=== PATIENT | male | born 1945 | race Caucasian/White ===

== ENCOUNTER 2017-05-10 11:57 | Outpatient (CLI) | payer BC ==
--- NOTE | 2017-05-10 13:44 | CT ---
CT BRAIN WITHOUT CONTRAST: HISTORY: Contusion. Injury. COMPARISON: None. FINDINGS: No acute hemorrhage. No infarct. No midline shift or mass effect. Calvarium is intact. Paranasal sinuses and mastoids are clear. There is a left periorbital soft tissue contusion. IMPRESSION: Left periorbital soft tissue contusion without acute traumatic intracranial sequelae. POS: [facility]
== END 2017-05-10 11:58 | disposition home or self-care (01) ==
LOC: CT 11:57
PROVIDERS: ATTEND Family Medicine
DX: S00.83XA Contusion of other part of head, initial encounter (principal); W19.XXXA Unspecified fall, initial encounter
CPT/HCPCS: 70450

== ENCOUNTER 2018-03-04 10:03 | Outpatient (CLI) | payer BC ==
[~2018-03-04 10:03] MED LIST: Iopamidol 370 76% 100 ML VIAL ONE
--- NOTE | 2018-03-04 12:39 | RAD ---
CHEST TWO VIEWS: History: Kidney cancer. FINDINGS: Cardiac silhouette and pulmonary vasculature are unremarkable. Mediastinum is midline. No confluent a irspace consolidation, pneumothorax, or pleural fluid. Ossification of the anterior longitudinal liga ment of the thoracic spine on the lateral view is consistent with diffuse idiopathic skeletal hyperos tosis. IMPRESSION: No active cardiopulmonary abnormalities are demonstrated. POS: [facility]
--- NOTE | 2018-03-04 15:28 | CT ---
ABDOMEN CT WITH CONTRAST: History: Renal cell cancer. Weight loss. History of right nephrectomy. Comparison: 11-14-13 FINDINGS: Lung bases are clear. Normal heart size. No pericardial effusion. The descending thoracic aorta and a bdominal aorta has a normal caliber. Symmetric attenuation of the cleidomastoid muscles. Portal vein is patent. Gallbladder is unremarkable. Pancreas, adrenal glands, and spleen are unremarkable. Right nephrectomy changes are noted. Left kidney is unremarkable. Visualized alimentary canal does not demonstrate any obstruction. Minimal stranding in the abdominal mesentery with nonspecific lymph nodes in the mesentery. There is a peripherally enhancing lesion in the posterior segment of the right hepatic lobe which was not present on the previous examination. A large metastatic lesion measuring 8.6 x 9.0 cm is suspect ed. There are no lytic or blastic lesions in the osseous structures. IMPRESSION: 1. Essentially hypodense, peripherally enhancing lesion involving the right hepatic lobe (posterior s egment). Given the patient's history of right renal cancer, metastatic lesion to the liver is suspect ed. Results of study discussed with Dr. David 03-04-18 at 3:15 p.m. POS: [facility]
== END 2018-03-04 10:04 | disposition home or self-care (01) ==
LOC: RAD 10:03
PROVIDERS: ATTEND Family Medicine
DX: C64.9 Malignant neoplasm of unspecified kidney, except renal pelvis (principal); K76.9 Liver disease, unspecified
CPT/HCPCS: 71046; 74160; 82565

== ENCOUNTER 2018-03-08 10:24 | Outpatient (CLI) | payer BC ==
--- NOTE | 2018-03-08 13:03 | CT ---
CHEST CT WITH CONTRAST: HISTORY: Malignant adenoma of the chest. Assess for cancer. COMPARISON: None. CORRELATION: Abdomen CT from 03/04/2018. TECHNIQUE: A post contrast chest CT is performed in the axial plane. Coronal reformatted images are submitted f or interpretation. FINDINGS: There is no mediastinal mass, lymphadenopathy, or hematoma. Heart size is within normal limits. No pericardial effusion. The central pulmonary arteries are adequately opacified with contrast. No carolee ling defect. The thoracic aorta and upper abdominal aorta have a normal caliber. No periaortic fat stranding. A peripherally enhancing, hypodense lesion in the right hepatic lobe is again demonstrated and is wor risome for a metastatic focus until proven otherwise. The trachea and central bronchi are patent. Dependent atelectatic changes. A 3 mm nodule in the lef t lower lobe. Subpleural nodule in the right lower lobe, measuring 3 mm. No suspicious or spiculate d masses in the lung parenchyma. There is no pneumothorax. No osseous abnormalities. IMPRESSION: 1. A 3 mm nodule in the left and right lower lobes, as described above. The nodules are of doubtful significance. No malignancy is appreciated in the chest. 2. Posterior right hepatic lobe lesion is again identified and is favored to be a neoplastic process until proven otherwise. POS: [facility]
== END 2018-03-08 10:25 | disposition home or self-care (01) ==
LOC: SCSCT 10:24
PROVIDERS: ATTEND Internal Medicine Hematology & Oncology
DX: R16.0 Hepatomegaly, not elsewhere classified (principal); I10 Essential (primary) hypertension; K76.9 Liver disease, unspecified; R91.8 Other nonspecific abnormal finding of lung field; Z85.528 Personal history of other malignant neoplasm of kidney
CPT/HCPCS: 71260

== ENCOUNTER 2018-03-21 08:18 | Day surgery (SDC) | payer BC ==
[2018-03-20 14:21] VITALS: BMI 26.3
[2018-03-21 08:45] LABS: INR-International Normal Ratio 1.2; PTT 36.7 SEC (22.9-36.1); Prothrombin Time 15.3 SEC (12.0-14.7)
[2018-03-21 08:46] LABS: #Eosinphils 0.1 thou/uL (0.0-0.7); #Lymphocytes 1.1 thou/uL (1.20-3.40); #Monocytes 0.9 thou/uL (0.11-0.59); #Neutrophils 8.2 thou/uL (1.40-6.50); %Basophils 0.1 % (0.0-1.0); %Eosinophils 1.2 % (0.0-10.0); %Lymphocytes 11.1 % (21.0-51.0); %Monocytes 8.6 % (0.0-10.0); %Neutrophils 79.1 % (42.0-75.0); Hemoglobin 11.2 g/dL (14.0-18.0); Mean Corpuscular HGB CONC 29.9 g/dL (32.0-36.0); Mean Corpuscular Hemoglobin 24.1 pg (27.0-31.0); Mean Corpuscular Volume 80.5 fL (78.0-98.0); Mean Platelet Volume 6.7 fL (7.4-10.4); Platelet Count 545 thou/uL (130-400); Red Blood Cell (RBC) Count 4.66 mill/uL (4.70-6.10); White Blood Cell (WBC) Count 10.3 thou/uL (4.8-10.8)
[2018-03-21 08:57] LABS: MDiff Complete? YES; Ovalocytes SLIGHT = 2-5 cells (100X) (0-1/hpf); PLT Morphology Comment Appears Increased; Polychromasia SLIGHT = 2-3 cells (100X) (0-2/hpf)
--- NOTE | 2018-03-21 13:47 | CT ---
CT GUIDED PERCUTANEOUS BIOPSY OF A RIGHT HEPATIC LOBE MASS: 03/21/2018 HISTORY: Patient with a history of renal cell carcinoma, post right nephrectomy. The patient now has a large necrotic mass seen in the right hepatic lobe. Biopsy was requested. TECHNIQUE: The procedure, including risks and complications, was explained to the patient, and informed consent was obtained. The patient was placed on the CT scan table, in a right anterior oblique supine positi on. A limited noncontrast CT scan was obtained through the right hepatic lobe, with grid localizer i n place. An area was marked and then meticulously prepped and draped in the usual sterile fashion. The skin and subcutaneous tissues were infiltrated with buffered 1% Lidocaine for local anesthesia at the intended puncture site. Conscious sedation was performed with the intravenous administration of fentanyl and Versed. A small skin incision was made. A 17 gauge guide needle was advanced into the peripheral aspect of t he right hepatic lobe. Three axial noncontrasted CT images were obtained. The needle was then advan betito to the margin of the left hepatic lobe mass, and position was confirmed with axial noncontrasted CT images. A total of two 18 gauge core needle biopsy specimens were obtained, utilizing a coaxial technique, th rough the 17 gauge guide needle. Pathology was available for evaluation of the specimen and noted that there was diagnostic tissue pre sent. As a result, no additional biopsies were obtained. The inner stylet was replaced, and the needle was removed. Hemostasis was achieved with direct press ure for approximately 10 minutes. A dry, sterile dressing was placed. A follow-up CT scan was obtai stephanie through the mass. Imaging demonstrated no perihepatic fluid collection or evidence of hematoma. Gas was seen in the right hepatic lobe, related to recent biopsy. The visualized lung bases were im aged, and no pneumothorax or pleural effusion was identified. The patient was transported to the radiology nurses' holding area and placed in the right lateral dec ubitus position for one hour. The patient was then further monitored in the radiology nurses' holdin g area. IMPRESSION: 1. Large necrotic right hepatic lobe mass. 2. Technically successful CT guided percutaneous biopsy of large right hepatic lobe mass. Initial p athology results indicate a large amount of necrotic material, but cellular material was noted by hallie fraga, and the specimen was deemed diagnostic. POS: [facility]
== END 2018-03-21 13:45 | disposition home or self-care (01) ==
LOC: CT 08:18
PROVIDERS: ATTEND Family Medicine
PROC: 0FB13ZX Excision of Right Lobe Liver, Percutaneous Approach, Diagnostic (ICD-10-PCS; principal; 2018-03-21)
DX: C78.7 Secondary malignant neoplasm of liver and intrahepatic bile duct (principal); D50.9 Iron deficiency anemia, unspecified; I10 Essential (primary) hypertension; Z85.528 Personal history of other malignant neoplasm of kidney; Z79.82 Long term (current) use of aspirin; Z79.899 Other long term (current) drug therapy; Z90.5 Acquired absence of kidney
CPT/HCPCS: 36415; 47000; 77012; 85025; 85610; 85730; 88307; 88333; 88334; 88341; 88342

== ENCOUNTER 2018-04-05 13:23 | Outpatient (CLI) | payer BC | END 2018-04-05 13:24 | disposition home or self-care (01) | LOC: LABBT 13:23 | PROVIDERS: ATTEND Specialist | DX: Z01.810 Encounter for preprocedural cardiovascular examination (principal) | CPT/HCPCS: 93005; 93010 ==

== ENCOUNTER 2018-04-09 06:34 | Day surgery (SDC) | payer BC ==
[2018-04-05 13:48] VITALS: BMI 26.2
[2018-04-09] MEDS ORDERED: Ketorolac Tromethamine 30 MG/ML VIAL ONE (08:15)
[2018-04-09] MEDS ORDERED: CEFAZOLIN/Water 2 GM/20 ML SYRINGE ONE (08:15)
[2018-04-09] MEDS ORDERED: Propofol 500 MG/50 ML VIAL ONE (08:35)
[2018-04-09] MEDS ORDERED: Fentanyl 100 MCG/2 ML VIAL ONE (08:35)
[2018-04-09] MEDS ORDERED: Ketamine 50 MG/ML VIAL ONE (08:35)
[2018-04-09] MEDS ORDERED: Midazolam HCl 2 mg/2 ml Vial ONE (08:35)
[2018-04-09] MEDS ORDERED: Bupivacaine/Epinephrine 0.25% 30 ML VIAL ONE (08:39)
[2018-04-09] MEDS ORDERED: Lidocaine 1% (PF) 30 ML VIAL ONE (08:39)
[2018-04-09] MEDS ORDERED: Lidocaine 0.5%/Epinephrine 1:200,000 50 ml Vial ONE (08:39)
--- NOTE | 2018-04-09 10:49 | RAD ---
FRONTAL VIEW CHEST: Indication: Mediport placement. FINDINGS: Focal density is seen at the right apex. There is a right chest port with tip overlying the right atr ium. The lungs are otherwise clear. No effusion is seen. IMPRESSION: 1. Right apical mass-like opacity. Recommend imaging follow up to confirm resolution. 2. Right chest port is present, without a discrete pneumothorax. Code T POS: [facility]
--- NOTE | 2018-04-09 12:02 | OP ---
DATE OF PROCEDURE: 04/09/2018 PREOPERATIVE DIAGNOSIS: Metastatic renal cell cancer. POSTOPERATIVE DIAGNOSIS: Metastatic renal cell cancer. OPERATION PERFORMED: Placement of right subclavian low profile power compatible MediPort. SURGEON: Brody Aleman M.D. RAG ROOM SUPERVISOR: Antonio Blanco, medical student. ANESTHESIA: Total intervenous anesthesia per Matt Coker CRNA, and with local using 0.25% Marcaine with epinephrine. INDICATIONS: The patient is a 72-year-old white male. He is recently diagnosed with metastatic gil l cell carcinoma to his liver. He presents for MediPort placement for chemotherapy administration. DESCRIPTION OF OPERATION: Informed consent was obtained. The patient was taken to the operating jaleel m where total intravenous anesthesia was obtained with the patient in supine position. Right pericla vicular area was prepped with ChloraPrep and draped in sterile fashion. Local anesthetic was infiltr ated and a large gauge needle was passed under the clavicle in the subclavian vein. Guidewire was pa ssed through the needle and fluoroscopically confirmed to enter the superior vena cava. Additional l ocal anesthetic was infiltrated and transverse incision was created based on needle insertion site. A subcutaneous pocket was dissected inferiorly. Introducer dilator was passed over the guidewire und er fluoroscopic guidance. The guidewire and dilator were removed, and the catheter was passed throug h the introducer. The tip of the catheter was positioned at the atriocaval junction and the catheter was trimmed to the appropriate length and secured to the locking hub of the MediPort. The port was then placed in the subcutaneous pocket where it was secured to the pectoral fascia with 2 interrupted sutures of 3-0 Prolene. The incision was then closed in layers with 3-0 and 4-0 Monocryl. Addition al local anesthetic was infiltrated. The port was cannulated with a Gray needle and it aspirated bl ood freely and was flushed with heparinized saline. Dermabond was placed externally on the skin inci fawad. There were no complications. Blood loss was negligible. The patient tolerated the procedure well and was taken to recovery room in stable condition. FINDINGS: The port utilized was a low-profile power compatible port. It was placed uneventfully int o the right subclavian vein on the initial stick. The anatomy was typical. There was essentially no blood loss and no complications. The patient taken to recovery in stable condition.
[2018-04-09] MEDS ORDERED: PROPOFOL 200 MG/20 ML VIAL ONE (17:04)
== END 2018-04-09 11:05 | disposition home or self-care (01) ==
LOC: SDC 06:34
PROVIDERS: ATTEND Specialist
PROC: 0JH63WZ Insertion of Totally Implantable Vascular Access Device into Chest Subcutaneous Tissue and Fascia, Percutaneous Approach (ICD-10-PCS; principal; 2018-04-09)
DX: C64.1 Malignant neoplasm of right kidney, except renal pelvis (principal); C78.7 Secondary malignant neoplasm of liver and intrahepatic bile duct; I10 Essential (primary) hypertension; E78.5 Hyperlipidemia, unspecified; F32.9 Major depressive disorder, single episode, unspecified; Z79.82 Long term (current) use of aspirin; Z79.899 Other long term (current) drug therapy; Z90.5 Acquired absence of kidney
CPT/HCPCS: 71045; C1788; J0131; J1642; J1885; J2001; J2250; J2704; J3010

== ENCOUNTER 2018-07-03 08:02 | Outpatient (CLI) | payer BC ==
--- NOTE | 2018-07-03 10:53 | CT ---
CT OF THE CHEST WITH CONTRAST CT OF THE ABDOMEN AND PELVIS WITH CONTRAST: Comparison: 03-04-18, 03-08-18 History: History of renal cancer with hepatic metastatic disease and pulmonary nodules. Anemia. Technique: 1. Multiple contiguous axial images were obtained in a CT of the chest with contrast. Coronal reforma ts were performed. 2. Multiple contiguous axial images were obtained in a CT of the abdomen and pelvis with contrast. Co neel reformats were performed. FINDINGS: There are approximately 10 scattered nodules throughout the lungs. These nodules are all less than 5 mm in size. The largest nodule seen in the right upper lobe on Image 21 of 61. When compared to the p rior examination, this nodule may have increased in size. A nodule in the lingula on Image 23 of 61 m ay also have increased in size and now measures 4 mm in size. Scattered nodules are seen in the bilat eral lower lobes on Images 25, 32, 34, 36, 37, 38, 43, and 45. The heart is normal in size without focal cardiac abnormality. No hilar or mediastinal lymphadenopath y are seen. A Mediport is seen with its tip in the superior vena cava. No pneumothorax or pleural effusion are seen. Degenerative changes are seen in the spine. No suspicious lytic lesion is identified. The chest wall soft tissues are unremarkable. CT ABDOMEN/PELVIS: The gallbladder has been removed. There is a large mass in the right lobe of the liver which has enla rged and now measures 12.3 cm in size. There is the appearance of a new left liver mass measuring 1.9 cm in greatest dimension. The right kidney has been removed. The adrenal glands, left kidney, spleen , and pancreas are unremarkable. No free air, free fluid, or stranding changes are seen in the abdomen or pelvis. The large and small bowel are unremarkable. No abdominal or pelvic lymphadenopathy are seen. The pros dudley is mildly enlarged. Degenerative changes are seen in the spine without suspicious osseous lesions identified. The abdomin al wall soft tissues are unremarkable. IMPRESSION: 1. Significant enlargement of liver mass. 2. Likely new left hepatic metastatic lesion. 3. Multiple scattered pulmonary nodules. Some of these appear to have increased in size compared to t he prior examination. The majority of these nodules were seen on the prior examination, but it is dif ficult to see given their very small size. POS: [facility]
--- NOTE | 2018-07-03 11:40 | MRI ---
MRI BRAIN WITHOUT AND WITH CONTRAST: Comparison: CT chest, abdomen, and pelvis 07-03-18. History: Renal cancer with metastatic disease. Dizziness. Memory loss. Technique: Multiplanar, multisequence MR images were obtained through the brain without and with IV c ontrast. FINDINGS: There are a few scattered foci of high FLAIR signal in the subcortical and periventricular white nick er, likely secondary to small vessel ischemic disease. No restricted diffusion or abnormal enhancemen t are seen on this examination. There is no evidence of hydrocephalus, intracranial hemorrhage or extraaxial fluid collection. The ex pected flow voids are present. The corpus callosum, pituitary, and craniocervical junction are unrema rkable. The calvarium and overlying soft tissues are unremarkable. The visualized paranasal sinuses and masto id air cells are well aerated. IMPRESSION: 1. No evidence of acute intracranial abnormality. 2. Small vessel ischemic disease. POS: [facility]
[2018-07-03] MEDS ORDERED: Iopamidol 370 76% 100 ML VIAL ONE (13:12)
[2018-07-03] MEDS ORDERED: Gadobenate Dimeglumine 529 MG/1 ML (20ML VIAL) ONE (13:24)
== END 2018-07-03 08:03 | disposition home or self-care (01) ==
LOC: CT 08:02
PROVIDERS: ATTEND Internal Medicine Hematology & Oncology
DX: C64.1 Malignant neoplasm of right kidney, except renal pelvis (principal); C18.7 Malignant neoplasm of sigmoid colon; R41.3 Other amnesia; R42 Dizziness and giddiness; R16.0 Hepatomegaly, not elsewhere classified; R91.8 Other nonspecific abnormal finding of lung field; I67.82 Cerebral ischemia
CPT/HCPCS: 70553; 71260; 74177; A9579

== ENCOUNTER 2018-09-12 22:30 | Inpatient (IN) | payer BC ==
[2018-09-12 23:35] LABS: Hemoglobin 15.2 g/dL (14.0-18.0); Mean Corpuscular Hemoglobin 24.9 pg (27.0-31.0); Mean Corpuscular Volume 83.3 fL (78.0-98.0); Red Blood Cell (RBC) Count 6.08 mill/uL (4.70-6.10)
[2018-09-12 23:53] LABS: #Eosinphils 0.1 thou/uL (0.0-0.7); #Lymphocytes 1.2 thou/uL (1.20-3.40); #Monocytes 0.4 thou/uL (0.11-0.59); #Neutrophils 11.3 thou/uL (1.40-6.50); %Basophils 0.1 % (0.0-1.0); %Eosinophils 0.5 % (0.0-10.0); %Lymphocytes 9.4 % (21.0-51.0); %Monocytes 2.8 % (0.0-10.0); %Neutrophils 87.2 % (42.0-75.0); Anisocytosis SLIGHT = 6-15 cells (100X) (0-5/hpf); MDiff Complete? YES; Macrocytosis SLIGHT = 6-15 cells (100X) (0-5/hpf); Mean Corpuscular HGB CONC 29.9 g/dL (32.0-36.0); Mean Platelet Volume 6.1 fL (7.4-10.4); Platelet Count 100 thou/uL (130-400); Platelet Morphology Comment Appears Decreased; RBC Distribution Width 27.5 % (11.5-14.5)
[2018-09-12 23:57] LABS: ALT (SGPT) 51 U/L (8-55); AST (SGOT) 46 U/L (5-34); Albumin 2.9 g/dL (3.4-4.8); Alkaline Phosphatase 211 U/L (40-150); Anion Gap 17 mmol/L (10-20); BUN (Urea Nitrogen) 27 mg/dL (8.4-25.7); Bilirubin, Total 0.7 mg/dL (0.2-1.2); Calc. Creatinine Clearance 0 mL/min (70-130); Calcium 8.8 mg/dL (7.8-10.44); Carbon Dioxide 21 mmol/L (23-31); Chloride 105 mmol/L (98-107); Estimated GFR-MDRD 59; Globulin 4.3 g/dL (2.4-3.5); Glucose 127 mg/dL (83-110); Potassium 3.7 mmol/L (3.5-5.1); Protein, Total 7.2 g/dL (5.8-8.1); Sodium 139 mmol/L (136-145)
[2018-09-13] MEDS ORDERED: Aspirin Chewable 81 MG TAB ONE (00:13)
[2018-09-13] MEDS ORDERED: Enoxaparin Sodium 80 MG/0.8 ML SYRINGE ONE (00:13)
[2018-09-13 00:14] LABS: INR-International Normal Ratio 1.1; Prothrombin Time 14.3 SEC (12.0-14.7)
[2018-09-13] MEDS ORDERED: Sodium Chloride 0.9% 1,000 ML IV SCH (01:21)
[2018-09-13 01:24] LABS: Troponin I 0.656 ng/mL (< 0.028)
[2018-09-13] MEDS ORDERED: Zolpidem Tartrate 5 MG TAB PO PRN (01:27)
[2018-09-13] MEDS ORDERED: HYDROcodone/Acetaminophen 5/325 mg Tablet PO PRN (01:27)
[2018-09-13] MEDS ORDERED: Acetaminophen 325 MG TAB PO PRN (01:27)
[2018-09-13] MEDS ORDERED: Ondansetron PF 4 MG/2 ML Vial IVP PRN (01:27)
[2018-09-13] MEDS ORDERED: Dextrose 5% in Water 1,000 ML IV PRN (01:30)
[2018-09-13] MEDS ORDERED: Dextrose 50% Abboject 50 ML SYRINGE SLOW IVP PRN (01:30)
[2018-09-13] MEDS ORDERED: HumaLOG 300 UNITS/3 ML VIAL SC PRN ×2 (01:30)
[2018-09-13 01:44] VITALS: BMI 21.9
[2018-09-13] MEDS ORDERED: Aspirin 81 mg Enteric Coated Tablet PO SCH (03:45)
--- NOTE | 2018-09-13 03:49 | HP ---
CHIEF COMPLAINT: Shortness of breath as well as chest pain. HISTORY OF PRESENT ILLNESS: This is a 73-year-old male, who presented to the hospital with complaints of severe significant chest pain as well as shortness of breath. The patient stated that he has had a past medical history of kidney, liver, and lung cancer. Had been on a daily dose of chemo since June of this year. The patient had a CT scan performed in the ER and was noted to have a PE. Official read is pending. The patient also was found to have elevated troponins in the ER. The patient was started on full-dose Lovenox, stated that he had some improvement after he was started on oxygen therapy as well. The patient states that this has never happened to him prior. Denies any other associated symptoms. Does admit to worsening of pain or shortness of breath on ambulation. Otherwise, no other alleviating or aggravating factors noted. The patient is seen and examined in the ER. All questions answered. ALLERGIES: NO KNOWN DRUG ALLERGIES. REVIEW OF SYSTEMS: All systems reviewed, pertinent positive in HPI, otherwise negative. FAMILY HISTORY: Positive for hypertension. SOCIAL HISTORY: Nondrinker and nonsmoker. HOME MEDICATIONS: See MAR. PHYSICAL EXAMINATION: VITAL SIGNS: Blood pressure 107/83, pulse of 95, O2 saturation 98% on room air, and temperature of 98. GENERAL: The patient lying in bed, in no acute discomfort. HEENT: Pupils are equal, round, and reactive to light and accommodation. Extraocular muscles intact. Oral cavity moist and pink. NECK: Supple, mobile, nontender. Thyroid appreciated. CARDIOVASCULAR: Reveals regular rate and rhythm. Faint systolic ejection murmur appreciated. EXTREMITIES: No cyanosis, clubbing, or edema noted. RESPIRATORY: Upfz-[id number]-xevoqaua respiratory distress. Slightly tachypneic. No increase in AP diameter. ABDOMEN: Positive bowel sounds. Soft, nontender, and nondistended. No rebound or guarding noted. EXTREMITIES: 2+ peripheral pulses. Trace edema. Otherwise, no cyanosis or clubbing noted. NEUROLOGICAL: Cranial nerves 2 through 12 are intact. Alert and oriented x3. LABORATORY DATA: CBC shows WBC count of 13, otherwise normal. Basic metabolic panel as stated earlier, shows a troponin of 0.591 secondary to 0.656, alkaline phosphatase 211, CK-MB at 10, glucose 127, otherwise normal metabolic panel. Official read on CTA pending. ASSESSMENT: 1. Pulmonary embolism with potential pulmonary infarction. 2. Hypertension. 3. Hyperlipidemia. 4. Hyperglycemia. 5. History of malignancy. 6. Pain control Non-ST Segment Elevation Myocardial Infarction. PLAN: At this point in time, we will admit the patient to Internal Medicine Team to do home medical reconciliation once medications are uploaded. Consultations to pulmonary and cardiovascular team. Start the patient on Lovenox q.12. We will also start the patient on atorvastatin and aspirin. Will hold off on dual antiplatelets for now until cardiac evaluation is completed. We will also obtain labs for tomorrow. The patient has a DNR on file in the computer, wishes to remain a DNR. Case and plan discussed with the patient at length. Further medical management per patient's progression in the case. Once again case and plan discussed with the patient at length. He understands and agrees with this plan. Job ID: [id number]
--- NOTE | 2018-09-13 07:01 | CT ---
CT ANGIOGRAM CHEST WITH CONTRAST: HISTORY: Dyspnea. Shortness of breath. COMPARISON: CT chest, abdomen, and pelvis from 07/03/2018. TECHNIQUE: CT angiogram chest performed after the intravenous administration of contrast with 3D rendering provi ded. FINDINGS: There is early mixing of contrast within the ascending and transverse aorta, which gives the appearan ce of a dissection, although this is felt to be artifactual. There is large volume thrombosis of the pulmonary arteries bilaterally. Thrombus involves the bilateral main pulmonary arteries, as well as finger-like extension into all segmental branches. There is right heart strain with reflux of contr ast to the inferior hepatic IVC and the hepatic veins. There is flattening of the intraventricular s eptum. There are developing infarcts of the left lower lobe and left upper lobe. The right hepatic mass is poorly evaluated on this exam, although it has likely increased in size. There is also contrast refl ux into the inferior vena cava. The pulmonary nodules have not significantly grown. IMPRESSION: Massive pulmonary embolism with bilateral main pulmonary artery emboli with finger-like extension int o all segmental branches with multifocal pulmonary infarctions. There is severe right heart strain w ith reflux of contrast to the inferior vena cava, as well as flattening/concavity of the intraventric ular septum. The patient is at high risk for dysrhythmia. CODE CR (DR. GASPAR AT 12:01 PM) POS: [facility]
--- NOTE | 2018-09-13 08:35 | CON ---
DATE OF CONSULTATION: 09/13/2018 This encompasses 70 minutes time, of that time, greater than 50% spent with the patient and/or the patient unit in the hospital. HISTORY OF PRESENT ILLNESS: The patient is a 73-year-old male, who was admitted last night with increasing shortness of breath of rather acute onset. He was diagnosed with bilateral massive pulmonary emboli and placed in the CCU after being given enoxaparin. He did not receive any type of thrombolytic therapy. PAST MEDICAL HISTORY: 1. Metastatic renal cell carcinoma. 2. Liver metastasis. 3. Hypertension. 4. Hyperlipidemia. PAST SURGICAL HISTORY: 1. Right nephrectomy. 2. Cholecystectomy. 3. Psychiatric history remarkable for depression. 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 He drinks socially. He has no smoking history. ALLERGIES: NONE. MEDICATIONS: Prior to admission: 1. Lisinopril 30 mg daily. 2. Aspirin 81 mg daily. 3. Atorvastatin 40 mg daily. 4. Fluoxetine 20 mg daily. 5. Prednisone 20 mg daily. 6. Metoprolol extended release 200 mg daily. Ranitidine 150 mg nightly. 1. Cabometyx 60 mg daily for chemotherapy for the renal cell carcinoma. FAMILY MEDICAL HISTORY: Remarkable for heart disease, cancer, stroke. PHYSICAL EXAMINATION: VITAL SIGNS: Temperature 97.7, pulse blood pressure 117/89, O2 saturation 100%, intake for 24 hours 610, output 200. GENERAL: He is a frail elderly male, who speaks softly with a raspy voice. He has alopecia throughout. HEENT: He has dry oral mucous membranes. NECK: No adenopathy or JVD. LUNGS: Clear to auscultation without wheezing rhonchi. CARDIAC: S1-S2. Regular without murmur. ABDOMEN: Soft, nontender. EXTREMITIES: No clubbing, cyanosis, edema. No swelling in the legs. LABORATORY DATA: White blood cell count 13, hematocrit 50.7, and platelet count 100. Sodium 139, potassium 3.7, chloride 105, CO2 of 21, BUN 27, creatinine 1.2, glucose 127. Troponin was 0.56. Albumin 2.9. IMAGING: CT pulmonary angiogram was reviewed by myself in detail. He has bilateral thromboemboli in the mainstem pulmonary artery areas. He has almost no flow to the right lung. He had some distal flow to the left lung. ASSESSMENT: 1. Massive pulmonary embolism without evidence of significant hypoxemia or hypotension. 2. Renal cell carcinoma with metastasis. 3. History of hypertension. 4. History of hyperlipidemia. 5. Protein-calorie malnutrition. PLAN: 1. The patient will be maintained on Lovenox. Eventually, a decision will be made to switch him either to Coumadin or to one of the newer novel anticoagulants. 2. Oncology consultation for continuation of maintenance chemotherapy. 3. Hopefully can get out to the telemetry unit by tomorrow. 4. GI prophylaxis with Pepcid. DVT prophylaxis is covered by the Lovenox that he is taking for the pulmonary embolism. Job ID: [id number]
[2018-09-13] MEDS ORDERED: Aspirin Chewable 81 MG TAB PO SCH (09:00)
[2018-09-13] MEDS ORDERED: Nitroglycerin 0.4 MG TAB (25 Tab Bottle) PO PRN (09:36)
[2018-09-13 09:43] LABS: Anion Gap 15 mmol/L (10-20); BUN (Urea Nitrogen) 30 mg/dL (8.4-25.7); Calc. Creatinine Clearance 77 mL/min (70-130); Calcium 8.1 mg/dL (7.8-10.44); Carbon Dioxide 16 mmol/L (23-31); Chloride 111 mmol/L (98-107); Estimated GFR-MDRD 82; Glucose 106 mg/dL (83-110); Sodium 138 mmol/L (136-145)
[2018-09-13 09:50] LABS: #Eosinphils 0.1 thou/uL (0.0-0.7); #Lymphocytes 1.6 thou/uL (1.20-3.40); #Monocytes 0.3 thou/uL (0.11-0.59); #Neutrophils 7.7 thou/uL (1.40-6.50); %Basophils 0.3 % (0.0-1.0); %Eosinophils 0.6 % (0.0-10.0); %Lymphocytes 16.6 % (21.0-51.0); %Monocytes 3.2 % (0.0-10.0); %Neutrophils 79.3 % (42.0-75.0); Hemoglobin 14.3 g/dL (14.0-18.0); Mean Corpuscular HGB CONC 29.8 g/dL (32.0-36.0); Mean Corpuscular Hemoglobin 24.5 pg (27.0-31.0); Mean Corpuscular Volume 82.2 fL (78.0-98.0); Platelet Count 97 thou/uL (130-400); RBC Distribution Width 27.6 % (11.5-14.5); Red Blood Cell (RBC) Count 5.84 mill/uL (4.70-6.10); White Blood Cell (WBC) Count 9.7 thou/uL (4.8-10.8)
[2018-09-13 09:56] LABS: Critical Call Chem Troponin I RESULT DECREASING; Troponin I 0.612 ng/mL (< 0.028)
[2018-09-13 10:06] LABS: Anisocytosis MODERATE=16-30 cells (100X) (0-5/hpf); MDiff Complete? YES; Platelet Morphology Comment Appears Decreased; Polychromasia SLIGHT = 2-3 cells (100X) (0-2/hpf)
[2018-09-13] MEDS: predniSONE 20 MG TAB PO SCH (10:47)
[2018-09-13] MEDS: Atorvastatin Calcium 40 MG TAB PO SCH (10:48)
[2018-09-13] MEDS: FLUoxetine HCl 20 MG CAP PO SCH (10:48)
[2018-09-13] MEDS: Famotidine 20 MG TAB PO SCH ×2 (10:48→20:53)
[2018-09-13] MEDS: Enoxaparin Sodium 80 MG/0.8 ML SYRINGE SC SCH ×2 (10:49→20:51)
[2018-09-13] MEDS: Sodium Chloride 0.9% 1,000 ML IV SCH ×2 (10:56→22:50)
--- NOTE | 2018-09-13 11:45 | ULT ---
BILATERAL LOWER EXTREMITY VENOUS DOPPLER: Date: 09/13/18 HISTORY: Immobility. Edema. COMPARISON: None. TECHNIQUE: Real-time Dmoinguez scale and color Doppler with spectral analysis of the bilateral lower extremity venous system was performed. The common femoral, femoral, proximal portions of greater saphenous and deep f emoral veins, as well as the popliteal and posterior tibial veins are interrogated. FINDINGS: There is normal flow, augmentation, and compression. IMPRESSION: No deep venous thrombosis. POS: [facility]
[2018-09-13] MEDS: Metoprolol Tartrate 25 MG TAB PO SCH (20:53)
[2018-09-13] MEDS: clonazePAM 0.5 MG TAB PO PRN (20:53)
[2018-09-13] MEDS ORDERED: Atorvastatin Calcium 40 MG TAB PO SCH (21:00)
--- NOTE | 2018-09-13 22:27 | CON ---
DATE OF CONSULTATION: 09/13/2018 HISTORY OF PRESENT ILLNESS: Mr. Melo is a 73-year-old male with a history of metastatic renal cell carcinoma, currently getting treatment with an oral agent called Cabometyx. His daughter noticed 3 to 4 days prior to the admission that he was growing increasingly shortness of breath. It did seem to escalate throughout the day of the admission. He denies any cough or pleurisy. He has lost some weight and has grown weaker throughout the diagnosis and his treatment. He has been sitting around more than usual and lays in the bed part of the day. On admission, he was brought in and CT angiogram showed extensive bilateral pulmonary embolism. He has been initiated on Lovenox injections and his breathing is stable. He was not hypoxic on admission but just tachypneic. He does otherwise complain of some bone pain but no chest pain. He is quite breathless just with speaking. PAST MEDICAL HISTORY: Metastatic renal cell carcinoma, currently a patient of Dr. Floyd. CURRENT MEDICATIONS: 1. Tylenol 650 mg p.o. q.6 hours p.r.n. 2. [place] 5/325 one p.o. q.4 hours p.r.n. 3. Aspirin 81 mg p.o. daily. 4. Lipitor 40 mg p.o. daily. 5. Clonazepam 0.5 mg p.o. at bedtime p.r.n. 6. Lovenox 70 mg subcu q.12 hours. 7. Pepcid 20 mg p.o. b.i.d. 8. Prozac 20 mg p.o. daily. 9. Metoprolol 12.5 mg p.o. b.i.d. 10. Nitroglycerin p.r.n. 11. Zofran 4 mg IV q.6 hours p.r.n. 12. Protonix 40 mg p.o. daily. 13. Prednisone 20 mg p.o. daily. 14. Ambien 5 mg p.o. at bedtime p.r.n. ALLERGIES: NO KNOWN DRUG ALLERGIES. SOCIAL HISTORY: He lives alone but his daughter is currently visiting from [place] to help take care of him. He denies tobacco or significant alcohol use. FAMILY HISTORY: Negative. REVIEW OF SYSTEMS: Otherwise 10-point review of systems is negative. PHYSICAL EXAMINATION: VITAL SIGNS: He is afebrile. Heart rate in the 90s. Blood pressure 118/93. O2 sat 95% on 2 L nasal cannula. Respiratory rate 24. GENERAL: He is quite cachetic and appears chronically ill, in mild respiratory distress. HEENT: Extraocular muscles are intact. Pupils are reactive to light. He has no oral cavity lesions. NECK: Supple without lymphadenopathy. CARDIOVASCULAR: Regular rhythm but tachycardic. LUNGS: Clear to auscultation anteriorly. ABDOMEN: Hypoactive bowel sounds. Soft, nontender, nondistended. EXTREMITIES: Trace edema. Some mild ecchymoses. LABORATORY DATA: White blood cell count 9.7, hemoglobin 14.3, and platelets 97. Sodium 138, potassium 4.0, chloride 111, CO2 of 16, BUN 30, creatinine 0.9, glucose 106, and calcium 8.1. Troponin I 0.612. INR 1.1 and PTT 32. DIAGNOSTIC DATA: CT angiogram done in the emergency room shows massive pulmonary embolism with bilateral main pulmonary artery emboli with finger-like extension into all segmental branches with multifocal pulmonary infarctions. There is severe right heart strain with reflux of contrast to the inferior vena cava as well as flattening or concavity of the intraventricular septum. This patient is at high risk for dysrhythmia based on the CT angiogram. Venogram done on admission of the lower extremities bilaterally shows no DVT. ASSESSMENT: Mr. Melo is a 73-year-old male with, 1. Metastatic renal cell carcinoma, currently on treatment with Cabometyx. 2. Massive bilateral pulmonary embolism. 3. Tachypnea with borderline hypoxia secondary to the above. 4. Chronic malnutrition. PLAN: 1. He is already on Lovenox and is stable, appreciate Pulmonary help. 2. We will hold the Cabometyx for now since this can cause some hypertension and at this point, there is no reason to cause any more cardiac stress. Assuming he stabilizes early next week, this could be added back. 3. He is a DNR per his request. 4. We will follow up with you. Job ID: [id number]
[2018-09-14] MEDS ORDERED: Amlodipine 5 MG TAB PO SCH (05:45)
[2018-09-14 06:03] LABS: Magnesium 1.9 mg/dL (1.6-2.6); Phosphorus 3.3 mg/dL (2.3-4.7)
--- NOTE | 2018-09-14 08:53 | PRG ---
DATE OF SERVICE: 09/14/2018 SUBJECTIVE: The patient remains in the CCU. He is quite, dyspneic on any type of exertion. He almost collapsed just from moving from the bed to the toilet. OBJECTIVE: VITAL SIGNS: On exam, temperature is 98.0, pulse 90, and blood pressure 159/119. A 24-hour intake 2461, output 650. He is currently on low-flow oxygen with O2 sat of 100% on nasal cannula. HEENT: Remarkable for alopecia. Oropharynx is dry. NECK: No adenopathy, JVD, or bruits. LUNGS: Clear to auscultation. CARDIAC: S1 and S2, regular without audible murmur. ABDOMEN: Soft and nontender. No swelling. EXTREMITIES: No clubbing, cyanosis, or edema. LABORATORY DATA: I do not see that any labs were done this morning, but they will be ordered for tomorrow. ASSESSMENT: 1. Acute hypoxic respiratory failure related to significant bilateral pulmonary emboli. 2. Metastatic renal cell carcinoma. 3. Right ventricular dilatation, probably secondary to pulmonary emboli. 4. History of hypertension. 5. History of hyperlipidemia. 6. Protein-calorie malnutrition. PLAN: 1. Continue subcutaneous Lovenox. 2. Can restart his lisinopril today, perhaps his metoprolol tomorrow. 3. I would keep him in the CCU for the time being given his degree of distress with any exertion. Job ID: [id number]
[2018-09-14] MEDS: Metoprolol Tartrate 25 MG TAB PO SCH (09:08)
[2018-09-14] MEDS: Aspirin Chewable 81 MG TAB PO SCH (09:08)
[2018-09-14] MEDS: Famotidine 20 MG TAB PO SCH ×2 (09:09→21:02)
[2018-09-14] MEDS: predniSONE 20 MG TAB PO SCH (09:09)
[2018-09-14] MEDS: FLUoxetine HCl 20 MG CAP PO SCH (09:09)
[2018-09-14] MEDS: Lisinopril 20 MG TAB PO SCH (09:09)
[2018-09-14] MEDS: Atorvastatin Calcium 40 MG TAB PO SCH (09:09)
[2018-09-14] MEDS: Enoxaparin Sodium 80 MG/0.8 ML SYRINGE SC SCH ×2 (09:10→21:03)
[2018-09-14 09:11] VITALS: BP 138/106
[2018-09-14] MEDS ORDERED: Senokot S 8.6-50 MG TAB PO SCH (11:00)
[2018-09-14] MEDS ORDERED: Polyethylene Glycol 3350 17 GM Packet PO SCH (11:00)
[2018-09-14] MEDS: Sodium Chloride 0.9% 1,000 ML IV SCH (13:08)
[2018-09-14] MEDS ORDERED: Metoprolol Tartrate 50 MG TAB PO SCH ×2 (14:15→21:00)
[2018-09-14] MEDS ORDERED: Polyethylene Glycol 3350 17 GM Packet PO PRN (14:23)
[2018-09-14] MEDS ORDERED: Labetalol HCl 100 MG/20 ML VIAL SLOW IVP PRN (14:26)
[2018-09-14] MEDS ORDERED: Sodium Chloride 0.65% Nasal 44 ML BOT EA NARE PRN (14:27)
[2018-09-14] MEDS ORDERED: Aluminum & Magnesium Hydroxide 60 ML, Lidocaine 2% Viscous Solution 30 ML, diphenhydrAM... SSW PRN (14:27)
[2018-09-14] MEDS ORDERED: Sodium Chloride 0.9% 1,000 ML IV SCH (20:44)
--- NOTE | 2018-09-14 20:46 | PDOC.PN ---
- Subjective Encounter Start Date: 09/14/18 Encounter Start Time: 14:00 Patient seen and examined for PE/Resp failure. SOB slightly better. No new complaints. No overnight events - Objective Resuscitation Status - Order Detail: 09/13/18 01:27 Resuscitation Status Routine Resuscitation Status: PRTL: Chem only Discussed with: patient Additional comments: No CPR or intubation MAR Reviewed: Yes Vital Signs & Weight: Vital Signs (12 hours) Temp BP Pulse Ox 09/14/18 16:29 99 09/14/18 16:00 96.8 F L 09/14/18 09:09 138/106 H Weight Admit Weight 162 lb Weight 162 lb 0.636 oz Most Recent Monitor Data Heart Rate from ECG 78 NIBP 159/121 NIBP BP-Mean 133 Respiration from ECG 26 SpO2 98 I&O: 09/13/18 09/14/18 09/15/18 06:59 06:59 06:59 Intake Total 610 2461 1290 Output Total 200 650 350 Balance 410 1811 940 Result Diagrams: 09/13/18 09:15 09/13/18 09:15 Radiology Reviewed by me: Yes (CTA - B/L PE) EKG Reviewed by me: Yes (Tele SR) Phys Exam - Physical Examination Constitutional: NAD Respiratory: no wheezing, no rales Scat rhonchi, Mild accessory muscle use Cardiovascular: RRR, no rub no heeaves/pulsations Gastrointestinal: soft, non-tender, no distention, positive bowel sounds Musculoskeletal: no edema, pulses present Neurological: non-focal, normal sensation, moves all 4 limbs Psychiatric: normal affect, A&O x 3 Dx/Plan - Plan DVT proph w/lovenox 1. Acute hypoxic resp failure 2. B/L PE with Right heart strain 3. HTN 4. HLD 5. Moderate PEM 6. Metastatic renal Ca 7. Elevated troponins due to demand ischemia PLAN: Cont CCU monitoring Cont Lovenox Cont 81 mg ASA Echo reviewed Increase Metoprolol Increase Amlodipine Cont current meds as below Review of Systems - Review of Systems Constitutional: negative: fever, chills, sweats, weakness, malaise, other Gastrointestinal: negative: Nausea, Vomiting, Abdominal Pain, Diarrhea, Constipation, Melena, Hematochezia, Other - Medications/Allergies Allergies/Adverse Reactions: Allergies Allergy/AdvReac Type Severity Reaction Status Date / Time No Known Allergies Allergy Verified 09/13/18 01:58 Medications: Current Medications Acetaminophen (Tylenol) 650 mg PO Q4H PRN PRN Reason: Headache/Fever/Mild Pain (1-3) Hydrocodone Bitart/Acetaminophen ([place] 5/325) 1 tab PO Q4H PRN PRN Reason: Moderate Pain (4-6) Albuterol/Ipratropium (Duoneb) 3 ml NEB [id number] PRN PRN Reason: SOB &/or Wheezing Aspirin (Aspirin Chewable) 81 mg PO DAILY [facility] Last Admin: 09/14/18 09:08 Dose: 81 mg Atorvastatin Calcium (Lipitor) 40 mg PO DAILY [facility] Last Admin: 09/14/18 09:09 Dose: 40 mg Clonazepam (Klonopin) 0.5 mg PO HS PRN PRN Reason: sleep Last Admin: 09/13/18 20:53 Dose: 0.5 mg Al Hydroxide/Mg Hydroxide 60 ml/ Lidocaine HCl 30 ml/Diphenhydramine HCl 75 mg 0 ml SSW PRN PRN PRN Reason: Mouth Irritation Dextrose/Water (Dextrose 50%) 25 gm SLOW IVP PRN PRN PRN Reason: Hypoglycemia Enoxaparin Sodium (Lovenox) 70 mg SC 0900,2100 [facility] Last Admin: 09/14/18 09:10 Dose: 70 mg Famotidine (Pepcid) 20 mg PO BID [facility] Last Admin: 09/14/18 09:09 Dose: 20 mg Fluoxetine HCl (Prozac) 20 mg PO DAILY [facility] Last Admin: 09/14/18 09:09 Dose: 20 mg Glucagon (Glucagon) 1 mg IM PRN PRN PRN Reason: Hypoglycemia Dextrose/Water (D5w) 1,000 mls @ 0 mls/hr IV .Q0M PRN PRN Reason: Hypoglycemia Sodium Chloride (Normal Saline 0.9%) 1,000 mls @ 50 mls/hr IV .Q20H [facility] Labetalol HCl (Normodyne) 10 mg SLOW IVP Q4H PRN PRN Reason: Systolic BP > 180 Lisinopril (Zestril) 30 mg PO DAILY [facility] Last Admin: 09/14/18 09:09 Dose: 30 mg Metoprolol Tartrate (Lopressor) 50 mg PO TID [facility] Nitroglycerin (Nitrostat) 0.4 mg PO Q5MIN PRN PRN Reason: Chest Pain Ondansetron HCl (Zofran) 4 mg IVP Q6H PRN PRN Reason: Nausea/Vomiting Pantoprazole Sodium (Protonix) 40 mg PO DAILY [facility] Last Admin: 09/14/18 09:09 Dose: 40 mg Polyethylene Glycol (Miralax) 17 gm PO DAILYPRN PRN PRN Reason: Constipation Prednisone (Prednisone) 20 mg PO DAILY [facility] Last Admin: 09/14/18 09:09 Dose: 20 mg Senna/Docusate Sodium (Senokot S) 1 tab PO BID [facility] Sodium Chloride (Flush - Normal Saline) 10 ml IVF Q12HR [facility] Last Admin: 09/14/18 09:10 Dose: 10 ml Sodium Chloride (Flush - Normal Saline) 10 ml IVF PRN PRN PRN Reason: Saline Flush Sodium Chloride ([place] Nasal [place] 0.65%) 0 ml EA NARE TIDPRN PRN PRN Reason: Nasal Congestion Zolpidem Tartrate (Ambien) 5 mg PO HSPRN PRN PRN Reason: Insomnia
[2018-09-14] MEDS: Senokot S 8.6-50 MG TAB PO SCH (21:11)
[2018-09-14] MEDS: Metoprolol Tartrate 50 MG TAB PO SCH (21:11)
[2018-09-15 05:54] LABS: Anion Gap 11 mmol/L (10-20); BUN (Urea Nitrogen) 28 mg/dL (8.4-25.7); Calc. Creatinine Clearance 86 mL/min (70-130); Calcium 8.5 mg/dL (7.8-10.44); Carbon Dioxide 20 mmol/L (23-31); Chloride 112 mmol/L (98-107); Estimated GFR-MDRD Greater than 90; Glucose 110 mg/dL (83-110); Potassium 3.5 mmol/L (3.5-5.1); Sodium 139 mmol/L (136-145)
[2018-09-15 06:06] LABS: Band 4 % (5-11); Hemoglobin 13.8 g/dL (14.0-18.0); Lymphocytes 17 % (21-51); MDiff Complete? YES; Mean Corpuscular Hemoglobin 26.1 pg (27.0-31.0); Mean Corpuscular Volume 81.8 fL (78.0-98.0); Mean Platelet Volume 5.8 fL (7.4-10.4); Monocytes 3 % (0-10); Neutrophil 74 % (42-75); Nucleated RBC 4 % (0); Platelet Count 115 thou/uL (130-400); Platelet Morphology Comment Appears Decreased; RBC Morphology Normal; Reactive Lymphocytes 2 % (0-10); Red Blood Cell (RBC) Count 5.28 mill/uL (4.70-6.10); White Blood Cell (WBC) Count 10.8 thou/uL (4.8-10.8)
--- NOTE | 2018-09-15 08:21 | PRG ---
DATE OF SERVICE: 09/15/2018 SUBJECTIVE: Mr. Melo is occasionally having some chest pain. He has had no hemoptysis. He states he is still quite breathless with any type of exertion. OBJECTIVE: VITAL SIGNS: His temperature is 96.4, pulse 75, blood pressure 127/129, O2 saturation 98% on 2 L. HEENT: Remarkable for alopecia. NECK: No JVD. LUNGS: Good air movement bilaterally. CARDIAC: S1, S2. Regular. ABDOMEN: Soft, nontender. EXTREMITIES: No edema. LABORATORY DATA: White blood cell count 10.8, hematocrit 43.2, and platelet count 115. Sodium of 139, potassium of 3.5 chloride of 112, CO2 of 20, BUN 28, creatinine 0.8 glucose 110. ASSESSMENT: 1. Submassive pulmonary embolism. 2. Metastatic renal cell carcinoma. 3. Acute hypoxic respiratory failure secondary to pulmonary embolism. 4. Hypertension. 5. Hyperlipidemia. 6. Protein-calorie malnutrition. PLAN: 1. We will attempt to transfer him down to the Intermediate Care Unit if a bed is available. 2. I will switch him over to [facility]. 3. Begin to initiate physical therapy. Job ID: [id number]
[2018-09-15] MEDS: Atorvastatin Calcium 40 MG TAB PO SCH (08:56)
[2018-09-15] MEDS: predniSONE 20 MG TAB PO SCH (08:56)
[2018-09-15] MEDS: Aspirin Chewable 81 MG TAB PO SCH (08:56)
[2018-09-15] MEDS: Senokot S 8.6-50 MG TAB PO SCH ×2 (08:56→21:47)
[2018-09-15] MEDS: FLUoxetine HCl 20 MG CAP PO SCH (08:56)
[2018-09-15] MEDS: Famotidine 20 MG TAB PO SCH ×2 (08:57→21:46)
[2018-09-15] MEDS: Amlodipine 5 MG TAB PO SCH (08:58)
[2018-09-15] MEDS: Lisinopril 20 MG TAB PO SCH (08:58)
[2018-09-15] MEDS: Metoprolol Tartrate 50 MG TAB PO SCH ×3 (09:00→21:46)
[2018-09-15] MEDS ORDERED: Amlodipine 5 MG TAB PO SCH (09:00)
[2018-09-15] MEDS ORDERED: Polyethylene Glycol 3350 17 GM Packet PO SCH (09:00)
[2018-09-15] MEDS ORDERED: Lorazepam 0.5 MG TAB PO PRN (10:18)
[2018-09-15] MEDS ORDERED: clonazePAM 0.5 MG TAB PO SCH (10:30)
[2018-09-15] MEDS ORDERED: clonazePAM 0.5 MG TAB PO PRN (14:48)
[2018-09-15] MEDS: Apixaban 5 MG TAB PO SCH (21:46)
--- NOTE | 2018-09-15 22:41 | PDOC.PN ---
- Subjective Encounter Start Date: 09/15/18 Encounter Start Time: 09:15 Patient seen and examined for PE. Anxious. No new complaints. No overnight events - Objective Resuscitation Status - Order Detail: 09/13/18 01:27 Resuscitation Status Routine Resuscitation Status: PRTL: Chem only Discussed with: patient Additional comments: No CPR or intubation MAR Reviewed: Yes Vital Signs & Weight: Vital Signs (12 hours) Temp 09/15/18 19:50 96.7 F L 09/15/18 15:14 96.6 F L 09/15/18 11:14 96.7 F L Weight Admit Weight 162 lb Weight 162 lb 0.636 oz Most Recent Monitor Data Heart Rate from ECG 93 NIBP 145/108 NIBP BP-Mean 120 Respiration from ECG 43 SpO2 98 I&O: 09/14/18 09/15/18 09/16/18 06:59 06:59 06:59 Intake Total 2461 1993 300 Output Total 650 501 75 Balance 1811 1492 225 Result Diagrams: 09/15/18 05:15 09/15/18 05:15 EKG Reviewed by me: Yes (Tele SR) Phys Exam - Physical Examination Constitutional: NAD Respiratory: no wheezing, no rales Scat rhonchi Cardiovascular: RRR, no rub Gastrointestinal: soft, non-tender, positive bowel sounds Musculoskeletal: no edema Dx/Plan - Plan DVT proph w/lovenox 1. Acute hypoxic resp failure 2. B/L PE (submassive) with Right heart strain 3. HTN 4. HLD 5. Moderate PEM 6. Metastatic renal Ca 7. Elevated troponins due to demand ischemia 8. Anxiety PLAN: Lovenox changed to Eliquis Cont current dose of Metoprolol/Amlodipine Cont current meds as below AM labs Add Clonazepam Review of Systems - Review of Systems Respiratory: Shortness of Breath, SOB with Excertion. negative: Cough, Dry, Hemoptysis, Pleuritic Pain, Sputum, Wheezing Cardiovascular: negative: chest pain, palpitations, orthopnea, paroxysmal nocturnal dyspnea, edema, light headedness, other - Medications/Allergies Allergies/Adverse Reactions: Allergies Allergy/AdvReac Type Severity Reaction Status Date / Time No Known Allergies Allergy Verified 09/13/18 01:58 Medications: Current Medications Acetaminophen (Tylenol) 650 mg PO Q4H PRN PRN Reason: Headache/Fever/Mild Pain (1-3) Hydrocodone Bitart/Acetaminophen ([place] 5/325) 1 tab PO Q4H PRN PRN Reason: Moderate Pain (4-6) Albuterol/Ipratropium (Duoneb) 3 ml NEB [id number] PRN PRN Reason: SOB &/or Wheezing Amlodipine Besylate (Norvasc) 5 mg PO DAILY [facility] Last Admin: 09/15/18 08:58 Dose: 5 mg Apixaban (Eliquis) 10 mg PO BID [facility] Last Admin: 09/15/18 21:46 Dose: 10 mg Aspirin (Aspirin Chewable) 81 mg PO DAILY [facility] Last Admin: 09/15/18 08:56 Dose: 81 mg Atorvastatin Calcium (Lipitor) 40 mg PO DAILY [facility] Last Admin: 09/15/18 08:56 Dose: 40 mg Clonazepam (Klonopin) 0.5 mg PO HS PRN PRN Reason: sleep Last Admin: 09/13/18 20:53 Dose: 0.5 mg Clonazepam (Klonopin) 0.25 mg PO DAILYPRN PRN PRN Reason: Anxiety/Agitation Al Hydroxide/Mg Hydroxide 60 ml/ Lidocaine HCl 30 ml/Diphenhydramine HCl 75 mg 0 ml SSW PRN PRN PRN Reason: Mouth Irritation Last Admin: 09/15/18 19:02 Dose: 10 ml Dextrose/Water (Dextrose 50%) 25 gm SLOW IVP PRN PRN PRN Reason: Hypoglycemia Famotidine (Pepcid) 20 mg PO BID [facility] Last Admin: 09/15/18 21:46 Dose: 20 mg Fluoxetine HCl (Prozac) 20 mg PO DAILY [facility] Last Admin: 09/15/18 08:56 Dose: 20 mg Glucagon (Glucagon) 1 mg IM PRN PRN PRN Reason: Hypoglycemia Dextrose/Water (D5w) 1,000 mls @ 0 mls/hr IV .Q0M PRN PRN Reason: Hypoglycemia Labetalol HCl (Normodyne) 10 mg SLOW IVP Q4H PRN PRN Reason: Systolic BP > 180 Lisinopril (Zestril) 30 mg PO DAILY [facility] Last Admin: 09/15/18 08:58 Dose: 30 mg Metoprolol Tartrate (Lopressor) 50 mg PO TID [facility] Last Admin: 09/15/18 21:46 Dose: 50 mg Morphine Sulfate (Morphine) 2 mg SLOW IVP Q2H PRN PRN Reason: SOB OR SEVERE PAIN Nitroglycerin (Nitrostat) 0.4 mg PO Q5MIN PRN PRN Reason: Chest Pain Ondansetron HCl (Zofran) 4 mg IVP Q6H PRN PRN Reason: Nausea/Vomiting Pantoprazole Sodium (Protonix) 40 mg PO DAILY [facility] Last Admin: 09/15/18 09:04 Dose: 40 mg Polyethylene Glycol (Miralax) 17 gm PO DAILYPRN PRN PRN Reason: Constipation Prednisone (Prednisone) 20 mg PO DAILY [facility] Last Admin: 09/15/18 08:56 Dose: 20 mg Senna/Docusate Sodium (Senokot S) 1 tab PO BID [facility] Last Admin: 09/15/18 21:47 Dose: 1 tab Sodium Chloride (Flush - Normal Saline) 10 ml IVF Q12HR [facility] Last Admin: 09/15/18 21:47 Dose: 10 ml Sodium Chloride (Flush - Normal Saline) 10 ml IVF PRN PRN PRN Reason: Saline Flush Sodium Chloride ([place] Nasal [place] 0.65%) 0 ml EA NARE TIDPRN PRN PRN Reason: Nasal Congestion
[2018-09-16] MEDS: clonazePAM 0.5 MG TAB PO PRN ×2 (02:03→20:25)
[2018-09-16] MEDS: Morphine 2 MG/ML SYRINGE SLOW IVP PRN ×5 (06:12→22:49)
[2018-09-16 07:14] LABS: BUN (Urea Nitrogen) 27 mg/dL (8.4-25.7); Calc. Creatinine Clearance 81 mL/min (70-130); Calcium 8.8 mg/dL (7.8-10.44); Carbon Dioxide 17 mmol/L (23-31); Chloride 111 mmol/L (98-107); Estimated GFR-MDRD 87; Glucose 97 mg/dL (83-110); Potassium 3.9 mmol/L (3.5-5.1); Sodium 140 mmol/L (136-145)
[2018-09-16 08:16] LABS: Anion Gap 16 mmol/L (10-20)
[2018-09-16] MEDS: Lisinopril 20 MG TAB PO SCH (08:46)
[2018-09-16] MEDS: FLUoxetine HCl 20 MG CAP PO SCH (08:47)
[2018-09-16] MEDS: Famotidine 20 MG TAB PO SCH ×2 (08:47→20:25)
[2018-09-16] MEDS: Senokot S 8.6-50 MG TAB PO SCH ×2 (08:47→20:25)
[2018-09-16] MEDS: Amlodipine 5 MG TAB PO SCH (08:49)
[2018-09-16] MEDS: Atorvastatin Calcium 40 MG TAB PO SCH (08:49)
[2018-09-16] MEDS: predniSONE 20 MG TAB PO SCH (08:49)
[2018-09-16] MEDS: Metoprolol Tartrate 50 MG TAB PO SCH ×2 (08:49→20:25)
[2018-09-16] MEDS: Aspirin Chewable 81 MG TAB PO SCH (08:50)
[2018-09-16] MEDS: Apixaban 5 MG TAB PO SCH ×2 (08:50→20:24)
--- NOTE | 2018-09-16 09:34 | PRG ---
DATE OF SERVICE: 09/16/2018 SUBJECTIVE: The patient is doing poorly, having difficulty breathing. OBJECTIVE: VITAL SIGNS: Temperature is 96.8, pulse 91, blood pressure 142/105, and O2 sat 91% to 94% on nasal cannula. HEENT: Unremarkable. NECK: No JVD. LUNGS: Distant breath sounds. CARDIAC: S1 and S2. Regular. ABDOMEN: Soft. EXTREMITIES: No edema. ASSESSMENT: 1. Submassive pulmonary embolism with continued hypoxic respiratory failure. 2. Metastatic renal cell carcinoma. PLAN: We are going to try noninvasive ventilation to see if it will allow him time to improve. He is a DNR otherwise. Discussed with daughter at bedside. Job ID: [id number]
[2018-09-16 10:04] LABS: Anisocytosis SLIGHT = 6-15 cells (100X) (0-5/hpf); Band 7 % (5-11); Hypochromia SLIGHT = 6-15 cells (100X) (0-5/hpf); Lymphocytes 1 % (21-51); MDiff Complete? YES; Mean Corpuscular HGB CONC 30.3 g/dL (32.0-36.0); Mean Corpuscular Hemoglobin 25.6 pg (27.0-31.0); Mean Corpuscular Volume 84.6 fL (78.0-98.0); Neutrophil 92 % (42-75); Nucleated RBC 6 % (0); Platelet Count 133 thou/uL (130-400); RBC Distribution Width 28.6 % (11.5-14.5); Red Blood Cell (RBC) Count 5.85 mill/uL (4.70-6.10); White Blood Cell (WBC) Count 9.4 thou/uL (4.8-10.8)
[2018-09-16] MEDS ORDERED: Lorazepam 2 MG/ML VIAL SLOW IVP SCH (10:30)
[2018-09-16] MEDS: cloNIDine 0.1mg/24 Hour PATCH TD SCH (12:48)
--- NOTE | 2018-09-16 16:33 | PDOC.PN ---
- Subjective Encounter Start Date: 09/16/18 Encounter Start Time: 09:30 Patient seen and examined for B/L PE. SOB +. Started on NIPPV. No overnight events - Objective Resuscitation Status - Order Detail: 09/13/18 01:27 Resuscitation Status Routine Resuscitation Status: PRTL: Chem only Discussed with: patient Additional comments: No CPR or intubation MAR Reviewed: Yes Vital Signs & Weight: Vital Signs (12 hours) Temp Pulse Resp BP 09/16/18 15:22 96.4 F L 09/16/18 13:10 38 H 09/16/18 11:11 96.4 F L 09/16/18 10:21 87 09/16/18 08:49 84 09/16/18 08:46 138/106 H 09/16/18 07:09 96.8 F L Weight Admit Weight 162 lb Weight 162 lb 0.636 oz Most Recent Monitor Data Heart Rate from ECG 97 NIBP 132/91 NIBP BP-Mean 104 Respiration from ECG 45 SpO2 92 I&O: 09/15/18 09/16/18 09/17/18 06:59 06:59 06:59 Intake Total 1993 300 Output Total 501 75 Balance 1492 225 Result Diagrams: 09/16/18 09:14 09/16/18 06:32 EKG Reviewed by me: Yes (Tele SR) Phys Exam - Physical Examination Pt in resp distress Respiratory: wheezing present (scat) B/L rhonchi, Accessory muscle use Cardiovascular: RRR, no rub Gastrointestinal: soft, non-tender, positive bowel sounds Musculoskeletal: no edema Neurological: non-focal, moves all 4 limbs Dx/Plan - Plan plan discussed w/ family, DVT proph w/SCDs 1. Acute hypoxic resp failure - on NIPPV 2. B/L PE (submassive) with Right heart strain - on Eliquis 3. HTN 4. HLD 5. Moderate PEM 6. Metastatic renal Ca 7. Elevated troponins due to demand ischemia 8. Anxiety PLAN: on Eliquis Reduce Metoprolol to 50 mg BID Add Clonidine patch Cont other meds as below AM labs Review of Systems - Review of Systems Respiratory: Shortness of Breath, SOB with Excertion. negative: Cough, Dry, Hemoptysis, Pleuritic Pain, Sputum, Wheezing Cardiovascular: negative: chest pain, palpitations, orthopnea, paroxysmal nocturnal dyspnea, edema, light headedness, other Gastrointestinal: negative: Nausea, Vomiting, Abdominal Pain, Diarrhea, Constipation, Melena, Hematochezia, Other - Medications/Allergies Allergies/Adverse Reactions: Allergies Allergy/AdvReac Type Severity Reaction Status Date / Time No Known Allergies Allergy Verified 09/13/18 01:58 Medications: Current Medications Acetaminophen (Tylenol) 650 mg PO Q4H PRN PRN Reason: Headache/Fever/Mild Pain (1-3) Hydrocodone Bitart/Acetaminophen ([place] 5/325) 1 tab PO Q4H PRN PRN Reason: Moderate Pain (4-6) Albuterol/Ipratropium (Duoneb) 3 ml NEB [id number] PRN PRN Reason: SOB &/or Wheezing Last Admin: 09/16/18 04:20 Dose: 3 ml Amlodipine Besylate (Norvasc) 5 mg PO DAILY [facility] Last Admin: 09/16/18 08:49 Dose: 5 mg Apixaban (Eliquis) 10 mg PO BID [facility] Last Admin: 09/16/18 08:50 Dose: 10 mg Aspirin (Aspirin Chewable) 81 mg PO DAILY [facility] Last Admin: 09/16/18 08:50 Dose: 81 mg Atorvastatin Calcium (Lipitor) 40 mg PO DAILY [facility] Last Admin: 09/16/18 08:49 Dose: 40 mg Clonazepam (Klonopin) 0.5 mg PO HS PRN PRN Reason: sleep Last Admin: 09/16/18 02:03 Dose: 0.5 mg Clonazepam (Klonopin) 0.25 mg PO DAILYPRN PRN PRN Reason: Anxiety/Agitation Last Admin: 09/16/18 12:48 Dose: 0.25 mg Clonidine ([id number] Patch) 0.1 mg TD [facility] Stop: 09/23/18 10:44 Last Admin: 09/16/18 12:48 Dose: 0.1 mg Al Hydroxide/Mg Hydroxide 60 ml/ Lidocaine HCl 30 ml/Diphenhydramine HCl 75 mg 0 ml SSW PRN PRN PRN Reason: Mouth Irritation Last Admin: 09/15/18 19:02 Dose: 10 ml Dextrose/Water (Dextrose 50%) 25 gm SLOW IVP PRN PRN PRN Reason: Hypoglycemia Famotidine (Pepcid) 20 mg PO BID [facility] Last Admin: 09/16/18 08:47 Dose: 20 mg Fluoxetine HCl (Prozac) 20 mg PO DAILY [facility] Last Admin: 09/16/18 08:47 Dose: 20 mg Glucagon (Glucagon) 1 mg IM PRN PRN PRN Reason: Hypoglycemia Dextrose/Water (D5w) 1,000 mls @ 0 mls/hr IV .Q0M PRN PRN Reason: Hypoglycemia Labetalol HCl (Normodyne) 10 mg SLOW IVP Q4H PRN PRN Reason: Systolic BP > 180 Lisinopril (Zestril) 30 mg PO DAILY [facility] Last Admin: 09/16/18 08:46 Dose: 30 mg Metoprolol Tartrate (Lopressor) 50 mg PO BID [facility] Morphine Sulfate (Morphine) 2 mg SLOW IVP Q2H PRN PRN Reason: SOB OR SEVERE PAIN Last Admin: 09/16/18 15:01 Dose: 2 mg Nitroglycerin (Nitrostat) 0.4 mg PO Q5MIN PRN PRN Reason: Chest Pain Ondansetron HCl (Zofran) 4 mg IVP Q6H PRN PRN Reason: Nausea/Vomiting Pantoprazole Sodium (Protonix) 40 mg PO DAILY [facility] Last Admin: 09/16/18 08:48 Dose: 40 mg Polyethylene Glycol (Miralax) 17 gm PO DAILYPRN PRN PRN Reason: Constipation Prednisone (Prednisone) 20 mg PO DAILY [facility] Last Admin: 09/16/18 08:49 Dose: 20 mg Senna/Docusate Sodium (Senokot S) 1 tab PO BID [facility] Last Admin: 09/16/18 08:47 Dose: 1 tab Sodium Chloride (Flush - Normal Saline) 10 ml IVF Q12HR [facility] Last Admin: 09/16/18 09:00 Dose: 10 ml Sodium Chloride (Flush - Normal Saline) 10 ml IVF PRN PRN PRN Reason: Saline Flush Sodium Chloride ([place] Nasal [place] 0.65%) 0 ml EA NARE TIDPRN PRN PRN Reason: Nasal Congestion
[2018-09-17] MEDS: Morphine 2 MG/ML SYRINGE SLOW IVP PRN ×2 (00:49→09:00)
[2018-09-17] MEDS ORDERED: Sodium Chloride 0.9% 500 ML IVPB SCH (04:30)
[2018-09-17 06:26] LABS: #Lymphocytes 1.1 thou/uL (1.20-3.40); #Monocytes 0.2 thou/uL (0.11-0.59); #Neutrophils 10.3 thou/uL (1.40-6.50); %Eosinophils 0.2 % (0.0-10.0); %Lymphocytes 9.5 % (21.0-51.0); %Monocytes 2.1 % (0.0-10.0); %Neutrophils 88.1 % (42.0-75.0); Hemoglobin 12.5 g/dL (14.0-18.0); Mean Corpuscular Hemoglobin 26.4 pg (27.0-31.0); Mean Platelet Volume 7.5 fL (7.4-10.4); Platelet Count 116 thou/uL (130-400); RBC Distribution Width 28.4 % (11.5-14.5); Red Blood Cell (RBC) Count 4.75 mill/uL (4.70-6.10); White Blood Cell (WBC) Count 11.7 thou/uL (4.8-10.8)
[2018-09-17 06:33] LABS: Anion Gap 15 mmol/L (10-20); BUN (Urea Nitrogen) 41 mg/dL (8.4-25.7); Calc. Creatinine Clearance 56 mL/min (70-130); Calcium 7.7 mg/dL (7.8-10.44); Carbon Dioxide 17 mmol/L (23-31); Chloride 117 mmol/L (98-107); Estimated GFR-MDRD 56; Glucose 75 mg/dL (83-110); Magnesium 1.7 mg/dL (1.6-2.6); Sodium 145 mmol/L (136-145)
[2018-09-17 06:36] LABS: Phosphorus 5.5 mg/dL (2.3-4.7)
[2018-09-17 07:05] VITALS: TEMP 98
[2018-09-17] MEDS ORDERED: Morphine 4 MG/ML VIAL SLOW IVP PRN (08:40)
[2018-09-17] MEDS ORDERED: Enoxaparin Sodium 80 MG/0.8 ML SYRINGE SC SCH (09:00)
--- NOTE | 2018-09-17 09:46 | PRG ---
DATE OF SERVICE: 09/17/2018 SUBJECTIVE: Mr. Melo is struggling mildly this morning. He wore the BiPAP, but took it off because he was uncomfortable. OBJECTIVE: VITAL SIGNS: Temperature 98.0, pulse 96, blood pressure 70/56, O2 saturation 100%. A 24-hour intake not quantitated. HEENT: Mucositis present. NECK: No JVD. LUNGS: Tachypneic. Distant breath sounds. CARDIAC: S1-S2 tachycardic. ABDOMEN: Soft. EXTREMITIES: No edema. LABORATORY DATA: White blood cell count 11.7, hematocrit 40, platelet count 116. Sodium 145, potassium 4, chloride 117, CO2 of 17, BUN 41, creatinine 1.2, glucose 75. ASSESSMENT: Pulmonary embolism, which has not responded to anticoagulants. 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 PLAN: I spoke with the daughter, who also spoke with the patient. We are going to re-focus our efforts on comfort issues. We will continue the attempts to treat the pulmonary embolism, but I will switch to Lovenox since I am not sure he is able to take oral medications. We will address his breathing with p.r.n. morphine. I will change his code status to full DNR. Job ID: [id number]
[2018-09-17] MEDS: Aspirin Chewable 81 MG TAB PO SCH (09:51)
[2018-09-17] MEDS: Amlodipine 5 MG TAB PO SCH (09:51)
[2018-09-17] MEDS: Atorvastatin Calcium 40 MG TAB PO SCH (09:51)
[2018-09-17] MEDS: predniSONE 20 MG TAB PO SCH (09:52)
[2018-09-17] MEDS: Senokot S 8.6-50 MG TAB PO SCH (09:52)
[2018-09-17] MEDS: FLUoxetine HCl 20 MG CAP PO SCH (09:52)
[2018-09-17] MEDS: Metoprolol Tartrate 50 MG TAB PO SCH (09:52)
[2018-09-17] MEDS: Famotidine 20 MG TAB PO SCH (09:52)
[2018-09-17] MEDS: Lisinopril 20 MG TAB PO SCH (09:52)
[2018-09-17] MEDS: cloNIDine 0.1mg/24 Hour PATCH TD SCH (09:53)
--- NOTE | 2018-09-18 09:31 | DIS ---
DATE OF ADMISSION: 09/13/2018 DATE OF DISCHARGE: 09/17/2018 DATE OF : September 17, 2018. BRIEF HOSPITAL COURSE: The patient was a 73-year-old male with metastatic renal cell carcinoma, presented to the hospital on 13 September 2018 with significant shortness of breath with tachypnea. His workup was consistent with bilateral submassive pulmonary embolism with right heart strain and pulmonary infarction. He was monitored in the Intensive Care Unit. He was started on 1 mg/kg of Lovenox. His echocardiogram showed left ventricular ejection fraction 50% to 55% with moderate to severely enlarged right ventricle cavity. There was also mild to moderate tricuspid regurgitation and mild pulmonic regurgitation. The patient's code status on admission was DNR. He was later transferred to the Intermediate Care Unit. His respiratory distress progressively got worse over the last 24 to 48 hours. He was also placed on noninvasive positive-pressure ventilation without much improvement. At 10:28 a.m. on 17 September 2018, patient was found to have asystole on the monitor. The family was at the bedside. FINAL DIAGNOSES: 1. Acute hypoxic respiratory failure secondary to submassive pulmonary embolism with right ventricular strain and pulmonary infarct. 2. Hypertension. 3. Hyperlipidemia. 4. Elevated troponin secondary to demand ischemia. 5. Moderate protein energy malnutrition. 6. Metastatic renal cell carcinoma. 7. Anxiety. 8. Physical deconditioning. Job ID: [id number]
== END 2018-09-17 14:51 | disposition expired | DRG 175 ==
LOC: ERS 22:30 → CCU 09-13 01:12 → IMCU/EMU 09-15 09:05
PROVIDERS: ADMIT Internal Medicine; ATTEND Internal Medicine
DX: I26.99 Other pulmonary embolism without acute cor pulmonale (principal); J96.01 Acute respiratory failure with hypoxia; C64.9 Malignant neoplasm of unspecified kidney, except renal pelvis; C78.7 Secondary malignant neoplasm of liver and intrahepatic bile duct; E44.0 Moderate protein-calorie malnutrition; I24.8 Other forms of acute ischemic heart disease; Z66 Do not resuscitate; I10 Essential (primary) hypertension; E78.5 Hyperlipidemia, unspecified; F41.9 Anxiety disorder, unspecified; Z79.82 Long term (current) use of aspirin; Z79.52 Long term (current) use of systemic steroids; Z90.49 Acquired absence of other specified parts of digestive tract; Z68.22 Body mass index [BMI] 22.0-22.9, adult; Z79.899 Other long term (current) drug therapy
CPT/HCPCS: 36415; 36416; 71275; 80048; 80053; 82553; 83735; 84100; 84484; 85025; 85610; 85730; 93005; 93306; 93970; 94640; 94660; 94760; 96360; 96372; J1650; J2270; J7620; Q0163